=== PATIENT | male | born 1960 | race African-American/Black ===

== ENCOUNTER 2016-06-27 19:11 | Emergency (ER) | payer BC ==
[~2016-06-27] VITALS: Ht 193 cm; Wt 124.3 kg
[~2016-06-27 19:11] MED LIST: ASPI81TA44 PO; DESL5TAB PO; ESOM40CA PO; LOSA1TAB16 PO; SITA1TAB11 PO
[2016-06-27 19:20] VITALS: BP 136/82
--- NOTE | 2016-06-27 19:29 | PHYS DOC ---
Past Medical History Past Medical History: Diabetes-Type II, GERD Additional Past Medical Histor: seasonal allergies Past Surgical History: No Surgical History Alcohol Use: None Drug Use: None Adult General Chief Complaint Chief Complaint: LACERATION/AVULSION HPI HPI Patient is a 56 year old male with history of diabetes type 2 who presents today with left lateral hand laceration. Patient states he got cut accidentally with an electric knife wearing rubber gloves cutting bushes. Review of Systems Review of Systems Constitutional: Denies fever or chills [] Eyes: Denies change in visual acuity, redness, or eye pain [] HENT: Denies nasal congestion or sore throat [] Musculoskeletal: Denies back pain or joint pain [] Integument: Left lateral hand laceration Neurologic: Denies headache, focal weakness or sensory changes [] Endocrine: Denies polyuria or polydipsia [] Current Medications Current Medications Current Medications Medications (Trade) Dose Ordered Sig/Lori Start Time Stop Time Status Last Admin Dose Admin Diphtheria/ Tetanus/Acell Pertussis (Boostrix) 0.5 ml ONCE ONCE 06/27/16 19:30 06/27/16 19:31 DC Lidocaine/Sodium Bicarbonate (Buffered Lidocaine 1%) 20 ml 1X ONCE 06/27/16 19:30 06/27/16 19:31 DC 06/27/16 19:30 20 ML Allergies Allergies Allergies Coded Allergies Type Severity Reaction Last Updated Verified No Known Drug Allergies 04/12/15 No Physical Exam Physical Exam Constitutional: Well developed, well nourished, no acute distress, non-toxic appearance. [] HENT: Normocephalic, atraumatic, bilateral external ears normal, oropharynx moist, no oral exudates, nose normal. [] Eyes: PERRLA, EOMI, conjunctiva normal, no discharge. [] Neck: Normal range of motion, no tenderness, supple, no stridor. [] Skin: Left lateral hand just below the distal transverse line with a horizontal laceration approximately 2 cm long. There is no obvious tendon involvement. Patient able to flex and extend the left hand and fingers with no difficulties. +2 left radial pulse. Adequate radial medial and ulnar sensation to the left hand and fingers. Cap refill less than 2 seconds the left upper extremity. Back: No tenderness, no CVA tenderness. [] Extremities: No tenderness, no cyanosis, no clubbing, ROM intact, no edema. [] Neurologic: Alert and oriented X 3, normal motor function, normal sensory function, no focal deficits noted. [] Psychologic: Affect normal, judgement normal, mood normal. [] Current Patient Data Vital Signs Vital Signs Date Time Temp Pulse Resp B/P (MAP) Pulse Ox O2 Delivery O2 Flow Rate FiO2 06/27/16 19:20 98.5 110 18 95 Room Air 98.5 EKG EKG [] Radiology/Procedures Radiology/Procedures Indication: Left hand laceration Procedure: The patient was placed in the appropriate position and anesthesia around the laceration was 1% buffered lidocaine. The area was then cleaned with 100 ML of normal saline and Betadine. The laceration was closed with 3 interrupted sutures using 4. 0 Ethilon. The wound was covered with gauze Total repaired wound length: Approximately 2 cm Other Items: None The patient tolerated the procedure well Complications: well Course & Med Decision Making Course & Med Decision Making Pertinent Labs and Imaging studies reviewed. (See chart for details) Patient has laceration to the left lateral hand. He was wearing rubber gloves when he got cut. Laceration was closed as noted in procedures. He is to follow- up with the ED in 7-10 days or the primary care doctor for suture removal. He was given tetanus in the ED. Provided return precautions and discharged in stable condition. Discharged with Cipro. [place] Disclaimer Dragon Disclaimer This electronic medical record was generated, in whole or in part, using a voice recognition dictation system. Departure Departure Impression: Primary Impression: Laceration of left hand Disposition: 01 HOME, SELF-CARE Condition: STABLE Referrals: RICHA RENEE DO (PCP) Follow-up with your own doctor or the emergency room in 7-10 days for suture removal Patient Instructions: Laceration Care, Adult Additional Instructions: You were seen with left hand laceration. Keep the area clean and dry. Apply Neosporin to it twice a day. Follow-up with your doctor or the emergency room in 7-10 days for suture removal. You received tetanus in the emergency room today. Scripts Ciprofloxacin Hcl (CIPRO) 500 Mg Tablet 1 TAB PO BID, #14 TAB Prov: RADHA LANE FRUIT PRESERVER 06/27/16 Problem Qualifiers Primary Impression: Laceration of left hand Encounter type: initial encounter Qualified Codes: S61.412A - Laceration without foreign body of left hand, initial encounter MUTUNGA,RADHA FRUIT PRESERVER June 27, 2016 19:29
[2016-06-27] MEDS ORDERED: DIPHTH,PERTUSS(ACELL),TET TOX 0.5 ML DISP.SYRIN. VAX IM ONE (19:30)
[2016-06-27] MEDS ORDERED: LIDOCAINE 1% / SOD BICARB 8.4% 20 ML VIAL. IJ ONE (19:30)
[2016-06-27] MEDS ORDERED: CIPR500T94 PO (19:46)
== END 2016-06-27 20:12 | disposition home or self-care (01) ==
LOC: ER 19:11
DX: S61.412A Laceration without foreign body of left hand, initial encounter (principal); K21.9 Gastro-esophageal reflux disease without esophagitis; E11.9 Type 2 diabetes mellitus without complications; W26.0XXA Contact with knife, initial encounter; Y93.89 Activity, other specified; Y92.89 Other specified places as the place of occurrence of the external cause; Y99.8 Other external cause status
CPT/HCPCS: 12001; 90471; 90715; 99283-25

== ENCOUNTER → 2017-09-20 | Outpatient (CLI) | payer BC | END | disposition home or self-care (01) | LOC: PCVCIMAG 15:00 | DX: I25.10 Atherosclerotic heart disease of native coronary artery without angina pectoris (principal); R06.09 Other forms of dyspnea; E11.9 Type 2 diabetes mellitus without complications; I51.7 Cardiomegaly | CPT/HCPCS: 93306 ==

== ENCOUNTER → 2018-04-27 | Outpatient (CLI) | payer BC ==
[~2018-04-27] MED LIST changes: -ASPI81TA44 PO; +ASPI81TA59 PO; +CIPR500T94 PO; -LOSA1TAB16 PO; +LOSA1TAB19 PO
--- NOTE | 2018-04-28 03:04 | PCVCIMAG ---
APPROVED REPORT Study performed: 04/27/2018 14:57:55 Exam: Stress Echocardiogram Indication: CAD , Hyperlipidemia, Hypertension Patient Location: Echo lab Stress Nurse: Marilee Ma RN Status: routine Ht: 5 ft 5 in HR: 122 bpm BP: 110/80 mmHg Rhythm: Sinus Tachycardia Medical History Medical History: HTN, Hyperlipidemia, Diabetes, paroxysmal atrial fib Procedure The patient underwent an Exercise Stress Test using the Sanjiv Protocol. Blood pressure, heart rate, and EKG were monitored. An Echocardiogram was performed by data entry technician in four stages in quad fashion. At peak stress, four selected images were obtained and placed side by side with resting images for comparison. Stress Test Details Stress Test: Exercise stress testing was performed using a Sanjiv protocol. HR Resting HR: 122 bpmMax Heart Rate (APMHR): 161 bpm Max HR Achieved: 155 bpmTarget HR (85% APMHR): 136 bpm % of APMHR: 96 Recovery HR: 120 bpm HR response to stress: Accelerated HR response to stress BP Resting BP: 110/80 mmHg Max BP: 162/80 mmHg Recovery BP: 122/68 mmHg BP response to stress: Normal blood pressure response to stress. ECG Resting ECG: Sinus Tachycardia Stress ECG: Sinus Tachycardia Recovery ECG: Sinus Tachycardia Clinical Reason for Termination: Maximal effort Exercise duration: 7 min 38 sec Highest Stage Achieved: Stage 3: 3.4 mph at 14% grade. Exercise capacity: 10.40 METs Overall Exercise Capacity for Age: Poor Stress ECG Conclusion 1.subjectively negative for ischemia 2. electrocardiographically negative for ischemia 3. reduced functional capacity Pre-Stress Echo The resting Echocardiogram showed abnormal left ventricular contractility with an estimated Ejection Fraction of about 40-45%. Distal septal hypokinesis. Post-Stress Echo The stress Echocardiogram showed abnormal left ventricular contractility with an estimated Ejection Fraction of about 45-50%. Distal septal hypokineis. Conclusion Clinical Response: Non-ischemic Exercise Capacity: Below Average Stress ECG Response: Non-ischemic Stress Echo Images: Non-ischemic 1. low to intermediate risk study based on wall motion abnormalities at rest Other Information Study Quality: Technically Difficult <Conclusion> 1. low to intermediate risk study based on wall motion abnormalities at rest
== END | disposition home or self-care (01) ==
LOC: PCVCIMAG 14:38
PROVIDERS: ATTEND Internal Medicine
DX: I25.10 Atherosclerotic heart disease of native coronary artery without angina pectoris (principal); E78.5 Hyperlipidemia, unspecified; I10 Essential (primary) hypertension; E11.9 Type 2 diabetes mellitus without complications; I48.0 Paroxysmal atrial fibrillation
CPT/HCPCS: 93325; 93351